=== PATIENT | female | born 1970 | race Caucasian/White ===

== ENCOUNTER 2017-10-16 16:33 | Emergency (ER) | payer OTHER ==
[~2017-10-16] VITALS: Ht 165.1 cm; Wt 110.9 kg
[~2017-10-16 16:33] MED LIST: ALPR.5 PO; AMIT50 PO; BENZ100A PO; BUPR150T2 PO; BUPR75 PO; CLON.5 PO; DIAZ5 PO; HYDHCL25 PO; NAPR500 PO; Norco 5-325 Ta1 EACH PO; OMEP20ER PO; PROM12.5S PR; PROM25 PO; Percocet 5-3251 EACH PO; Prednisone20 MG PO; SUMA25 PO; TOPI100 PO; TRAZ50 PO; [UNRECOGNIZED DRUG - OTHER] PO
[2017-10-16] MEDS ORDERED: TRAZ100 PO (17:10)
[2017-10-16 18:21] LABS: Source, Urine Clean Catch
[2017-10-16 18:26] LABS: BASOPHILS ABSOLUTE AUTO 0.07 K/mm3 (0.00-0.23); BASOPHILS PERCENT AUTO 1 % (0-2); EOSINOPHILS ABSOLUTE AUTO 0.19 K/mm3 (0.00-0.68); EOSINOPHILS PERCENT AUTO 2 % (0-6); Hematocrit 40.1 % (33.0-51.0); IMMATURE GRAN ABSOLUTE AUTO 0.02 K/mm3 (0.00-0.10); IMMATURE GRAN PERCENT AUTO 0 % (0-1); LYMPHOCYTES ABSOLUTE AUTO 3.13 K/mm3 (0.84-5.20); LYMPHOCYTES PERCENT AUTO 33 % (21-46); MONOCYTES ABSOLUTE AUTO 0.54 K/mm3 (0.16-1.47); MONOCYTES PERCENT AUTO 6 % (4-13); Mean Corpuscular HGB 28.3 pg (26.0-34.0); Mean Corpuscular HGB Conc 32.4 g/dL (31.5-36.5); Mean Corpuscular Volume 87 fL (80-100); Mean Platelet Volume 9.6 fL (9.1-12.4); NEUTROPHILS ABSOLUTE AUTO 5.45 K/mm3 (1.96-9.15); NEUTROPHILS PERCENT AUTO 58 % (41-73); Platelet Count 313 K/mm3 (150-400); RDW Coefficient Variation 12.9 % (11.7-14.2); RDW Standard Deviation 41.1 fL (35.1-46.3); Red Blood Cell Count 4.59 M/mm3 (3.80-5.20)
[2017-10-16 18:30] LABS: Appearance, Urine Clear (Clear); Bilirubin, Urine Neg (Neg); Blood, Urine 1+ (Neg); Color, Urine Yellow (P-Yellow); Glucose Qualitative, Urine Neg (Neg); Ketones, Urine Neg (Neg); Leukocyte Esterase, Urine Neg (Neg); Nitrite, Urine Neg (Neg); Protein, Urine Neg (Neg); Urobilinogen, Urine 2+ (Normal)
[2017-10-16 18:40] LABS: Bacteria Few /hpf; Red Blood Cells, Urine 0-2 /hpf (0-2); Squamous Epithelial Cells Mod /hpf (Few); White Blood Cells, Urine 0-2 /hpf (0-5); Yeast/Fungi Urine Few /hpf
[2017-10-16 18:50] LABS: Alanine Aminotransfer (ALT/SGP 20 U/L (12-78); Albumin, Blood 3.8 g/dL (3.4-5.0); Alk Phos 95 U/L (50-136); Anion Gap 7 mmol/L (6-16); Aspartate Aminotrans (AST/SGOT 13 U/L (12-37); Bilirubin, Total 0.1 mg/dL (0.1-1.0); Blood Urea Nitrogen 10 mg/dL (8-24); Bun/Creatinine Ratio 18.1 (12.0-20.0); CO2, Blood 26 mmol/L (21-32); Calcium, Blood 8.7 mg/dL (8.5-10.1); Chloride, Blood 107 mmol/L (98-108); Creatinine, Blood 0.55 mg/dL (0.40-1.00); Globulin, Blood 3.7 g/dL (2.2-4.0); Glomerular Filtration Rate >60 (60-); Glucose, Blood 108 mg/dL (70-99); Potassium, Blood 3.7 mmol/L (3.5-5.5); Sodium, Blood 140 mmol/L (136-145); Total Protein, Blood 7.5 g/dL (6.4-8.2)
[2017-10-16] MEDS ORDERED: Zofran Odt4 MG PO (19:23)
== END 2017-10-16 19:40 | disposition home or self-care (01) ==
LOC: ER 16:33
PROVIDERS: Emergency Medicine
DX: M53.3 Sacrococcygeal disorders, not elsewhere classified (principal); Z88.1 Allergy status to other antibiotic agents; Z88.8 Allergy status to other drugs, medicaments and biological substances; Z79.899 Other long term (current) drug therapy; G43.909 Migraine, unspecified, not intractable, without status migrainosus; F17.210 Nicotine dependence, cigarettes, uncomplicated
CPT/HCPCS: 36415; 80053; 81001; 81025; 85025; 96361; 96374; 96375; 99283; J1885; J2405; J7030

== ENCOUNTER → 2018-06-29 | Outpatient (CLI) | payer OTHER ==
[~2018-06-29] MED LIST changes: +TRAZ100 PO; +Zofran Odt4 MG PO
[2018-06-29 17:45] LABS: Adenovirus F 40/41 Not Detected (NOT DETECT); Astrovirus Not Detected (NOT DETECT); Campylobacter Sp Not Detected (NOT DETECT); Cryptosporidium Not Detected (NOT DETECT); Cyclospora Cayetanensis Not Detected (NOT DETECT); E. Coli O157 Not Detected (NOT DETECT); Entamoeba Histolytica Not Detected (NOT DETECT); Enteroaggregative E. coli-EAEC Not Detected (NOT DETECT); Enteropathogenic E. coli-EPEC Not Detected (NOT DETECT); Enterotoxigenic E. coli-ETEC Not Detected (NOT DETECT); Giardia Lamblia Not Detected (NOT DETECT); Norovirus GI/GII Not Detected (NOT DETECT); Plesiomonas Shigelloides Not Detected (NOT DETECT); Rotavirus A Not Detected (NOT DETECT); Salmonella Sp Not Detected (NOT DETECT); Sapovirus Not Detected (NOT DETECT); Shiga Toxin-prod E. coli-STEC Not Detected (NOT DETECT); Shigella/Enteroin E. coli-EIEC Not Detected (NOT DETECT); Vibrio Cholerae Not Detected (NOT DETECT); Vibrio Sp Not Detected (NOT DETECT); Yersinia Enterocolitica Not Detected (NOT DETECT)
== END | disposition home or self-care (01) ==
LOC: LAB 09:22 → LAB SHORT 09:22
PROVIDERS: Physician Assistant
DX: A09 Infectious gastroenteritis and colitis, unspecified (principal)
CPT/HCPCS: 87507

== ENCOUNTER → 2018-06-30 | Outpatient (CLI) | payer OTHER ==
[2018-06-30 16:12] LABS: BASOPHILS ABSOLUTE AUTO 0.05 K/mm3 (0.00-0.23); BASOPHILS PERCENT AUTO 1 % (0-2); EOSINOPHILS ABSOLUTE AUTO 0.13 K/mm3 (0.00-0.68); EOSINOPHILS PERCENT AUTO 3 % (0-6); Hematocrit 40.2 % (33.0-51.0); Hemoglobin 13.2 g/dL (11.5-16.0); IMMATURE GRAN ABSOLUTE AUTO 0.01 K/mm3 (0.00-0.10); IMMATURE GRAN PERCENT AUTO 0 % (0-1); LYMPHOCYTES PERCENT AUTO 23 % (21-46); MONOCYTES ABSOLUTE AUTO 0.45 K/mm3 (0.16-1.47); MONOCYTES PERCENT AUTO 9 % (4-13); Mean Corpuscular HGB 28.1 pg (26.0-34.0); Mean Corpuscular HGB Conc 32.8 g/dL (31.5-36.5); Mean Corpuscular Volume 86 fL (80-100); Mean Platelet Volume 10.7 fL (9.1-12.4); NEUTROPHILS ABSOLUTE AUTO 3.32 K/mm3 (1.96-9.15); NEUTROPHILS PERCENT AUTO 64 % (41-73); Platelet Count 251 K/mm3 (150-400); RDW Coefficient Variation 13.4 % (11.7-14.2); RDW Standard Deviation 41.6 fL (35.1-46.3); Red Blood Cell Count 4.69 M/mm3 (3.80-5.20); White Blood Cell Count 5.16 K/mm3 (4.00-11.30)
[2018-06-30 16:21] LABS: Alanine Aminotransfer (ALT/SGP 28 U/L (12-78); Albumin, Blood 3.8 g/dL (3.4-5.0); Albumin/Globulin Ratio 1.2 (0.8-1.8); Alk Phos 90 U/L (40-126); Anion Gap 9 mmol/L (6-16); Aspartate Aminotrans (AST/SGOT 23 U/L (12-37); Bilirubin, Total 0.2 mg/dL (0.1-1.0); Blood Urea Nitrogen 4 mg/dL (8-24); Bun/Creatinine Ratio 4.9 (12.0-20.0); CO2, Blood 27 mmol/L (21-32); Calcium, Blood 8.7 mg/dL (8.5-10.1); Chloride, Blood 104 mmol/L (98-108); Creatinine, Blood 0.82 mg/dL (0.40-1.00); Globulin, Blood 3.3 g/dL (2.2-4.0); Glomerular Filtration Rate >60 (60-); Glucose, Blood 101 mg/dL (70-99); Potassium, Blood 4.2 mmol/L (3.5-5.5); Sodium, Blood 140 mmol/L (136-145); Total Protein, Blood 7.1 g/dL (6.4-8.2)
== END | disposition home or self-care (01) ==
LOC: LAB SHORT 15:58 → LAB EV 15:58
PROVIDERS: Physician Assistant
DX: A09 Infectious gastroenteritis and colitis, unspecified (principal)
CPT/HCPCS: 80053; 83690; 85025

== ENCOUNTER 2018-09-11 09:02 | Day surgery (SDC) | payer OTHER ==
[~2018-09-11] VITALS: Ht 165.1 cm; Wt 100.1 kg
[~2018-09-11 09:02] MED LIST changes: +ALPR1 PO; +ESCI20 PO; +Imitrex100 MG PO; +MODA200 PO; -OMEP20ER PO; +OMEPRAZOLE MAGN20 MG PO; +TRAM50 PO
== END 2018-09-11 11:50 | disposition home or self-care (01) ==
LOC: ORSCSDS 09:02
PROVIDERS: Internal Medicine Gastroenterology
PROC: 0DBK8ZX Excision of Ascending Colon, Via Natural or Artificial Opening Endoscopic, Diagnostic (ICD-10-PCS; principal; 2018-09-11 10:45)
PROC: 0DBN8ZX Excision of Sigmoid Colon, Via Natural or Artificial Opening Endoscopic, Diagnostic (ICD-10-PCS; principal; 2018-09-11 10:45)
DX: K92.1 Melena (principal); D12.0 Benign neoplasm of cecum; D12.2 Benign neoplasm of ascending colon; K63.5 Polyp of colon; K57.30 Diverticulosis of large intestine without perforation or abscess without bleeding; F41.8 Other specified anxiety disorders; F17.210 Nicotine dependence, cigarettes, uncomplicated; Z79.899 Other long term (current) drug therapy
CPT/HCPCS: 88305; J7120

== ENCOUNTER 2020-05-07 15:41 | Emergency (ER) | payer OTHER ==
[~2020-05-07] VITALS: Ht 165.1 cm; Wt 99.8 kg
[2020-05-07] MEDS ORDERED: Norco 5-325 Ta1 EACH PO (16:48)
== END 2020-05-07 17:28 | disposition home or self-care (01) ==
LOC: ER 15:41
DX: S42.021A Displaced fracture of shaft of right clavicle, initial encounter for closed fracture (principal); F41.9 Anxiety disorder, unspecified; F17.210 Nicotine dependence, cigarettes, uncomplicated; Z79.899 Other long term (current) drug therapy; X50.0XXA Overexertion from strenuous movement or load, initial encounter; W18.30XA Fall on same level, unspecified, initial encounter; Y93.02 Activity, running
CPT/HCPCS: 73000; 73030; 99284-25

== ENCOUNTER 2021-11-22 11:00 | Emergency (ER) | payer MEDICARE, OTHER ==
[~2021-11-22] VITALS: Ht 165.1 cm; Wt 108.4 kg
[2021-11-22 11:32] LABS: BASOPHILS ABSOLUTE AUTO 0.07 K/mm3 (0.00-0.23); BASOPHILS PERCENT AUTO 1 % (0-2); EOSINOPHILS PERCENT AUTO 2 % (0-6); Hemoglobin 12.7 g/dL (11.5-16.0); IMMATURE GRAN ABSOLUTE AUTO 0.02 K/mm3 (0.00-0.10); IMMATURE GRAN PERCENT AUTO 0 % (0-1); LYMPHOCYTES ABSOLUTE AUTO 1.74 K/mm3 (0.84-5.20); LYMPHOCYTES PERCENT AUTO 28 % (21-46); MONOCYTES ABSOLUTE AUTO 0.38 K/mm3 (0.16-1.47); MONOCYTES PERCENT AUTO 6 % (4-13); Mean Corpuscular HGB 28.2 pg (26.0-34.0); Mean Corpuscular HGB Conc 31.8 g/dL (31.5-36.5); Mean Corpuscular Volume 89 fL (80-100); Mean Platelet Volume 9.1 fL (9.1-12.4); NEUTROPHILS ABSOLUTE AUTO 3.84 K/mm3 (1.96-9.15); NEUTROPHILS PERCENT AUTO 63 % (41-73); Platelet Count 299 K/mm3 (150-400); RDW Coefficient Variation 12.4 % (11.7-14.2); RDW Standard Deviation 40.7 fL (35.1-46.3); White Blood Cell Count 6.15 K/mm3 (4.00-11.30)
[2021-11-22 12:06] LABS: Alanine Aminotransfer (ALT/SGP 27 U/L (12-78); Albumin, Blood 3.8 g/dL (3.4-5.0); Alk Phos 113 U/L (50-136); Anion Gap 9 mmol/L (6-16); Aspartate Aminotrans (AST/SGOT 18 U/L (12-37); Bilirubin, Total 0.4 mg/dL (0.1-1.0); Blood Urea Nitrogen 14 mg/dL (8-24); Bun/Creatinine Ratio 19.9 (12.0-20.0); CO2, Blood 23 mmol/L (21-32); Calcium, Blood 9.1 mg/dL (8.5-10.1); Chloride, Blood 104 mmol/L (98-108); Glomerular Filtration Rate >60 (60-); Glucose, Blood 114 mg/dL (70-99); Sodium, Blood 136 mmol/L (136-145); Total Protein, Blood 7.8 g/dL (6.4-8.2)
[2021-11-22] MEDS ORDERED: LAMOTRIGINE25 M4 PO (12:40)
== END 2021-11-22 13:25 | disposition home or self-care (01) ==
LOC: ER 11:00
PROVIDERS: Emergency Medicine
DX: F41.9 Anxiety disorder, unspecified (principal); G43.909 Migraine, unspecified, not intractable, without status migrainosus; F17.290 Nicotine dependence, other tobacco product, uncomplicated
CPT/HCPCS: 71045; 80053; 84484; 85025; 93005; 93010; 99285-25; J3030

== ENCOUNTER 2021-12-22 07:47 | Day surgery (SDC) | payer MEDICARE, OTHER ==
[~2021-12-22] VITALS: Ht 165.1 cm; Wt 109.8 kg
[~2021-12-22 07:47] MED LIST changes: +ASPI81CH PO; +ATOR40TA PO; +BISOPROLOL-HCT1 EAC2 PO; +LAMOTRIGINE25 M4 PO
[2021-12-22] MEDS ORDERED: Bisoprolol Fumar5 MG PO (08:17)
[2021-12-22] MEDS ORDERED: SUBVENITE PO (08:18)
[2021-12-22] MEDS ORDERED: ESTROGEN PATCH TD (08:20)
[2021-12-22] MEDS ORDERED: OMEP20ER (08:21)
--- NOTE | 2021-12-22 10:15 | NUR ---
PT TO RECOVERY ROOM POST PROCEDURE. PT DROWSY, BUT CONVERSING APPROPRIATELY; DENIES CHEST PAIN POST PROCEDURE. MONITOR SR 70'S, B/P 121/95, AFEBRILE, SPO2 95% RA. R RADIAL SITE NO SWELLING/HEMATOMA, TR BAND IN PLACE; RUE POSITIVE PLEUTH POST TR BAND PLACEMENT.
--- NOTE | 2021-12-22 10:50 | NUR ---
PT RECEIEVED NICOTINE PATCH PER REQUEST.
--- NOTE | 2021-12-22 12:55 | NUR ---
PT AMB TO BATHROOM, GAIT STEADY; SITE UNCHANGED AFTER ACTIVITY.
--- NOTE | 2021-12-22 13:00 | NUR ---
PT DRESSED SELF WITHOUT PROBLEM, SITE UNCHANGED; IV REMOVED-CANNULA INTACT. TR BAND REMOVED CLOTH DOT AND WRIST IMMOBILIZER PLACED; PT DECLINED SLING.
--- NOTE | 2021-12-22 13:12 | NUR ---
PT AND SPOUSE RECEIVED DISCHAGE INSRUCTIONS, MED LIST AND AFTER CARE INSTRUCTIONS; VERBALIZED GOOD UNDERSTANDING. PT LEFT FACILITY VIA W/C, CONDITION STABLE.
== END 2021-12-22 13:12 | disposition home or self-care (01) ==
LOC: MHTC 07:47
PROC: B2111ZZ Fluoroscopy of Multiple Coronary Arteries using Low Osmolar Contrast (ICD-10-PCS; principal; 2021-12-22)
PROC: 4A023N7 Measurement of Cardiac Sampling and Pressure, Left Heart, Percutaneous Approach (ICD-10-PCS; principal; 2021-12-22)
DX: R07.89 Other chest pain (principal); I25.10 Atherosclerotic heart disease of native coronary artery without angina pectoris; E78.5 Hyperlipidemia, unspecified; J44.9 Chronic obstructive pulmonary disease, unspecified; E66.9 Obesity, unspecified; Z79.899 Other long term (current) drug therapy
CPT/HCPCS: 93454; 99152; A9270; C1769; C1887; C1894; J1644; J2250; J3010; J7030; J7040; Q9967

== ENCOUNTER 2023-03-30 06:12 | Day surgery (SDC) | payer MEDICARE, OTHER ==
[~2023-03-30] VITALS: Ht 165.1 cm; Wt 109.8 kg
[~2023-03-30 06:12] MED LIST changes: +Bisoprolol Fumar5 MG PO; +ESTROGEN PATCH TD; +OMEP20ER; +SUBVENITE PO
[2023-03-30] MEDS ORDERED: Venlafaxine HC100 MG PO (07:12)
[2023-03-30] MEDS ORDERED: Hydroxyzine HCl50 MG (07:12)
--- NOTE | 2023-03-30 08:42 | NUR ---
03/30/23 0842 STEFANI HICKS PT COMES OUT AWAKE AND TALKING. PLACED ON O2 VIA FACE MASK. PLACED ON 10L. O2 SAT @ 99% ON RA. DECREASED TO 5L FOR TRIAL. CURRENTLY 95% ON 5 L
--- NOTE | 2023-03-30 09:00 | NUR ---
03/30/23 0900 STEFANI HICKS IN @ O855 TO DO CXR TO CHECK PORT PLACEMENT.- PT PLACED BACK ON O2 @ 10L PT O2 SAT WAS DROPPING INTO UPPER 80'S ON RA. HOWEVER, PT HAS DARK NAIL [place] ON. POSITIONED ON SIDE, BY WILL TRY OTHER MEANS TO CHECK O2
[2023-03-30 09:11] VITALS: BP 104/71
== END 2023-03-30 10:30 | disposition home or self-care (01) ==
LOC: ORSCSDS 06:12
PROVIDERS: Surgery
PROC: 0JH63WZ Insertion of Totally Implantable Vascular Access Device into Chest Subcutaneous Tissue and Fascia, Percutaneous Approach (ICD-10-PCS; principal; 2023-03-30 07:30)
PROC: B543ZZA Ultrasonography of Right Jugular Veins, Guidance (ICD-10-PCS; principal; 2023-03-30 07:30)
PROC: 05HM33Z Insertion of Infusion Device into Right Internal Jugular Vein, Percutaneous Approach (ICD-10-PCS; principal; 2023-03-30 07:30)
DX: C50.412 Malignant neoplasm of upper-outer quadrant of left female breast (principal); E78.5 Hyperlipidemia, unspecified; I25.10 Atherosclerotic heart disease of native coronary artery without angina pectoris; J44.9 Chronic obstructive pulmonary disease, unspecified; F17.210 Nicotine dependence, cigarettes, uncomplicated; Z79.899 Other long term (current) drug therapy; F41.8 Other specified anxiety disorders; E66.01 Morbid (severe) obesity due to excess calories; Z68.41 Body mass index [BMI] 40.0-44.9, adult
CPT/HCPCS: 77001; C1788; J0690; J1100; J1642; J1885; J2250; J2405; J2704; J2795; J3010; J7120

== ENCOUNTER 2023-08-31 08:28 | Day surgery (SDC) | payer MEDICARE, OTHER ==
[~2023-08-31 08:28] MED LIST changes: +Hydroxyzine HCl50 MG; +Venlafaxine HC100 MG PO
== END 2023-08-31 23:01 | disposition home or self-care (01) ==
LOC: MOI US 08:28
DX: C50.812 Malignant neoplasm of overlapping sites of left female breast (principal)
CPT/HCPCS: 19285; A4648

== ENCOUNTER 2023-09-05 07:15 | Day surgery (SDC) | payer MEDICARE, OTHER ==
[~2023-09-05] VITALS: Ht 165.1 cm; Wt 105.6 kg
[2023-09-05] VITALS (17 sets, daily range): BP systolic 102–139; BP diastolic 67–87
[~2023-09-05 07:15] MED LIST changes: +Flonase 0.05% N16 GM; -Hydroxyzine HCl50 MG; +Hydroxyzine HCl50 MG PO; +MULVITA PO; +OMEP20ER PO; -OMEPRAZOLE MAGN20 MG PO; +ONDA4 PO
[2023-09-05] MEDS ORDERED: Bisoprolol Fumar5 MG PO (09:23)
[2023-09-05] MEDS ORDERED: ATOR40TA PO (09:23)
[2023-09-05] MEDS ORDERED: GABA100 PO (09:24)
[2023-09-05] MEDS ORDERED: REGLAN1013 PO (09:25)
[2023-09-05] MEDS ORDERED: BENZONATATE100 MG PO (09:25)
[2023-09-05] MEDS ORDERED: XANAX PO (09:28)
--- NOTE | 2023-09-05 10:05 | NUR ---
History, Chart, Medications and Allergies reviewed before start of procedure. Ambulatory in Day Surgery. Pre-Op teaching done. Pt verbalizes understanding. Patient confirms NPO status and agrees with scheduled surgery. Patient reports completing Chlorhexadine shower X2 prior to admission to hospital. Surgical site prepped with 2% Chlorhexidine cloth wipe. Lungs clear T/O to Auscultation. Patient States Post-Procedure ride home has been arranged.
--- NOTE | 2023-09-05 11:22 | NUR ---
09/05/23 1122 [address]ney [address]ata CALL FROM DR. VELASCO AT 1120. SPECIMEN B) LEFT SENTINEL LYMPH NODE (PREVIOUSLY POSITIVE) IS POSITIVE FOR CARCINOMA. PER DR. MILLER NO RESULT NEEDED ON SPECIMEN C) SENTINEL LYMPH NODE #2.
--- NOTE | 2023-09-05 17:09 | NUR ---
SHIFT SUMMARY PATIENT IS S/P BILAT BREAST MASTECOMY W/ MEDIPORT REMOVAL. STERI STRIPS WITH GAUZE AND BREAST BINDER DRESSING AOX3-4 HAS SOME. POST-OP GROGGINESS. MEDICATED FOR PAIN TOLERATES WELL. TOLERATES PO INTAKE, UP TO BATHROOM SBA TO VOID. X3 HELDER DRAINS WITH S/S. DRNG. PATIENT IS RESTING COMFORTABLE, VSS. CALL LIGHT IN REACH.
[2023-09-06 05:51] VITALS: BP 116/84
[2023-09-06 07:16] VITALS: BP 116/80
[2023-09-06] MEDS ORDERED: HYDROCODONE-AC1 EA10 PO (10:41)
--- NOTE | 2023-09-06 11:03 | NUR ---
DISCHARGE NOTE PT DISCHARGED TO HOME, DISCHARGE INFORMATION AND EDUCATION PROVIDED TO THE PT. MEDICATIONS FAXED TO THE PHARMACY OF HER CHOICE. HARD SCRIPT PROVIDED. IV REMOVED. PERSONAL BELONGINGS RETURNED.
== END 2023-09-06 11:08 | disposition home or self-care (01) ==
LOC: ORSCMMR 07:15 → ORD 09:30 → ORSCMMR 09:30 → SURS 14:30 → ORSCMMR 09-06 11:08
PROVIDERS: Surgery
PROC: 07B60ZX Excision of Left Axillary Lymphatic, Open Approach, Diagnostic (ICD-10-PCS; principal; 2023-09-05 09:30)
PROC: 0HBV0ZX Excision of Bilateral Breast, Open Approach, Diagnostic (ICD-10-PCS; principal; 2023-09-05 09:30)
PROC: 0JPT3WZ Removal of Totally Implantable Vascular Access Device from Trunk Subcutaneous Tissue and Fascia, Percutaneous Approach (ICD-10-PCS; principal; 2023-09-05 09:30)
DX: C50.812 Malignant neoplasm of overlapping sites of left female breast (principal); C77.3 Secondary and unspecified malignant neoplasm of axilla and upper limb lymph nodes; Z17.0 Estrogen receptor positive status [ER+]; Z40.01 Encounter for prophylactic removal of breast; D24.1 Benign neoplasm of right breast; I25.10 Atherosclerotic heart disease of native coronary artery without angina pectoris; J44.9 Chronic obstructive pulmonary disease, unspecified; K21.9 Gastro-esophageal reflux disease without esophagitis; E78.5 Hyperlipidemia, unspecified; E88.810 Metabolic syndrome; F17.290 Nicotine dependence, other tobacco product, uncomplicated; F33.9 Major depressive disorder, recurrent, unspecified; Z79.899 Other long term (current) drug therapy; E66.9 Obesity, unspecified; Z68.38 Body mass index [BMI] 38.0-38.9, adult; Z45.2 Encounter for adjustment and management of vascular access device
CPT/HCPCS: 88307; 88331; A9270; J0690; J2250; J3010; J7120; Q9968

== ENCOUNTER 2024-02-11 11:17 | Emergency (ER) | payer MEDICARE, OTHER ==
[~2024-02-11] VITALS: Ht 165.1 cm; Wt 107.0 kg
[~2024-02-11 11:17] MED LIST changes: +BENZONATATE100 MG PO; +CYCL10 PO; +GABA100 PO; +HYDROCODONE-AC1 EA10 PO; +IBUP800 PO; +OXAYDO5 M2 PO; +REGLAN1013 PO; +XANAX PO; +Zofran4 MG PO
[2024-02-11] MEDS ORDERED: Ketorolac Tromethamine 30mg Vial IV ONE (12:10)
[2024-02-11] MEDS ORDERED: FentaNYL Citrate 50 MCG/ML 2 ML Injection IV ONE ×2 (12:10→13:05)
[2024-02-11 12:11] LABS: Hematocrit 34.4 % (33.0-51.0); Hemoglobin 11.7 g/dL (11.5-16.0); Mean Corpuscular HGB 29.9 pg (26.0-34.0); Mean Corpuscular Volume 88 fL (80-100); Mean Platelet Volume 8.7 fL (9.1-12.4); Platelet Count 200 K/mm3 (150-400); RDW Coefficient Variation 14.5 % (11.7-14.2); RDW Standard Deviation 46.1 fL (35.1-46.3); Red Blood Cell Count 3.91 M/mm3 (3.80-5.20); White Blood Cell Count 3.71 K/mm3 (4.00-11.30)
[2024-02-11 12:27] LABS: Albumin, Blood 3.6 g/dL (3.4-5.0); Bilirubin, Total 0.4 mg/dL (0.1-1.0); Bun/Creatinine Ratio 18.1 (12.0-20.0); Calcium, Blood 9.3 mg/dL (8.5-10.1); Creatinine, Blood 0.66 mg/dL (0.40-1.00); Globulin, Blood 3.5 g/dL (2.2-4.0); Potassium, Blood 3.9 mmol/L (3.5-5.5); Total Protein, Blood 7.1 g/dL (6.4-8.2)
[2024-02-11 12:34] LABS: Source, Urine Clean Catch
[2024-02-11 12:38] LABS: Appearance, Urine Hazy (Clear); Bilirubin, Urine Neg (Neg); Blood, Urine Neg (Neg); Color, Urine Yellow (P-Yellow); Glucose Qualitative, Urine Neg (Neg); Ketones, Urine Neg (Neg); Leukocyte Esterase, Urine 1+ (Neg); Nitrite, Urine Neg (Neg); Protein, Urine 1+ (Neg); Specific Gravity, Urine 1.025 (1.003-1.022); Urobilinogen, Urine NORM (Normal)
[2024-02-11 12:47] LABS: BASOPHILS ABSOLUTE MAN 0.03 K/mm3 (0.00-0.23); BASOPHILS PERCENT MAN 1 % (0-2); EOSINOPHILS ABSOLUTE MAN 0.07 K/mm3 (0.00-0.68); EOSINOPHILS PERCENT MAN 2 % (0-6); LYMPHOCYTES % ATYPICAL MANUAL 3 % (0-0); LYMPHOCYTES ABSOLUTE MAN 1.55 K/mm3 (0.84-5.20); LYMPHOCYTES PERCENT MAN 39 % (21-46); MONOCYTES ABSOLUTE MAN 0.18 K/mm3 (0.16-1.47); MONOCYTES PERCENT MAN 5 % (4-13); NEUTROPHILS ABSOLUTE MAN 1.85 K/mm3 (1.96-9.15); SEG NEUTROPHILS PERCENT MAN 50 % (41-73); TOTAL CELLS COUNTED 100
[2024-02-11 12:57] LABS: Amorphous Light (0-Heavy); Bacteria Few /hpf; Calcium Oxalate Crystals Rare /hpf; Mucus Light (0-Heavy); Red Blood Cells, Urine Not Seen /hpf (0-2); Squamous Epithelial Cells Many /hpf (Few)
[2024-02-11] MEDS ORDERED: ANASTROZOLE1 M7 PO (14:25)
[2024-02-11] MEDS ORDERED: MORP15ER PO (15:12)
[2024-02-11 15:20] VITALS: BP 120/80
== END 2024-02-11 15:23 | disposition home or self-care (01) ==
LOC: ER 11:17
PROVIDERS: Physician Assistant; Student in an Organized Health Care Education/Training Program
DX: R10.32 Left lower quadrant pain (principal); Z98.890 Other specified postprocedural states; G47.33 Obstructive sleep apnea (adult) (pediatric); F17.200 Nicotine dependence, unspecified, uncomplicated; Z79.1 Long term (current) use of non-steroidal anti-inflammatories (NSAID); Z79.51 Long term (current) use of inhaled steroids; Z79.899 Other long term (current) drug therapy; Z88.1 Allergy status to other antibiotic agents
CPT/HCPCS: 74177; 80053; 81001; 85025; 87077; 87086; 87186; 96374-59; 96375; 96376; 99284-25; J1885; J3010; Q9967

== ENCOUNTER → 2024-06-19 | Outpatient (CLI) | payer MEDICARE, OTHER ==
[~2024-06-19] MED LIST changes: +ANASTROZOLE1 M7 PO; +MORP15ER PO
[2024-06-19 17:02] LABS: U Amphetamine Screen Not Detected; U Barbituate Screen Not Detected; U Benzodiazapine Screen Not Detected; U Buprenorphine Screen Not Detected; U Cannabinoids Screen DETECTED; U Cocaine Screen Not Detected; U Methadone Screen Not Detected; U Methamphetamine Screen Not Detected; U Opiates Screen Not Detected; U Oxycodone Screen Not Detected; U Phencyclidine Screen Not Detected
== END ==
LOC: LAB 15:16 → LAB SHORT 15:16
PROVIDERS: Internal Medicine Critical Care Medicine
DX: G47.10 Hypersomnia, unspecified (principal); R40.0 Somnolence

== ENCOUNTER 2025-01-01 19:12 | Emergency (ER) | payer MEDICARE, OTHER ==
[~2025-01-01] VITALS: Ht 165.1 cm; Wt 110.2 kg
[2025-01-01] MEDS ORDERED: Ketorolac Tromethamine 15mg Vial IV ONE (19:35)
[2025-01-01] MEDS ORDERED: Metoclopramide HCl 5MG / ML 2ML Vial IV ONE (19:35)
[2025-01-01] MEDS ORDERED: NS 1,000 ML IV SCH (19:35)
[2025-01-01 21:10] LABS: BASOPHILS ABSOLUTE AUTO 0.04 K/mm3 (0.00-0.23); BASOPHILS PERCENT AUTO 0 % (0-2); EOSINOPHILS ABSOLUTE AUTO 0.09 K/mm3 (0.00-0.68); EOSINOPHILS PERCENT AUTO 1 % (0-6); Hematocrit 35.9 % (33.0-51.0); Hemoglobin 12.1 g/dL (11.5-16.0); IMMATURE GRAN ABSOLUTE AUTO 0.02 K/mm3 (0.00-0.10); IMMATURE GRAN PERCENT AUTO 0 % (0-1); LYMPHOCYTES ABSOLUTE AUTO 1.43 K/mm3 (0.84-5.20); LYMPHOCYTES PERCENT AUTO 16 % (21-46); MONOCYTES ABSOLUTE AUTO 0.84 K/mm3 (0.16-1.47); MONOCYTES PERCENT AUTO 9 % (4-13); Mean Corpuscular HGB 29.4 pg (26.0-34.0); Mean Corpuscular HGB Conc 33.7 g/dL (31.5-36.5); Mean Corpuscular Volume 87 fL (80-100); Mean Platelet Volume 8.9 fL (9.1-12.4); NEUTROPHILS ABSOLUTE AUTO 6.79 K/mm3 (1.96-9.15); NEUTROPHILS PERCENT AUTO 74 % (41-73); Platelet Count 249 K/mm3 (150-400); RDW Coefficient Variation 12.9 % (11.7-14.2); Red Blood Cell Count 4.12 M/mm3 (3.80-5.20); White Blood Cell Count 9.21 K/mm3 (4.00-11.30)
[2025-01-01 21:32] LABS: Albumin, Blood 3.9 g/dL (3.4-5.0); Albumin/Globulin Ratio 0.9 (0.8-1.8); Bilirubin, Total 0.5 mg/dL (0.1-1.0); Bun/Creatinine Ratio 11.3 (12.0-20.0); Calcium, Blood 9.2 mg/dL (8.5-10.1); Creatinine, Blood 0.71 mg/dL (0.40-1.00); Globulin, Blood 4.2 g/dL (2.2-4.0); Potassium, Blood 3.7 mmol/L (3.5-5.5); Total Protein, Blood 8.1 g/dL (6.4-8.2)
[2025-01-01 21:37] VITALS: BP 135/85
[2025-01-01] MEDS ORDERED: METO10 PO (22:01)
[2025-01-02] MEDS ORDERED: Oxymetazoline 0.05% Nasal Relief Spray 15mL BTL SCH (09:00)
== END 2025-01-01 22:55 | disposition home or self-care (01) ==
LOC: ER 19:12
PROVIDERS: Emergency Medicine
DX: J06.9 Acute upper respiratory infection, unspecified (principal); R19.7 Diarrhea, unspecified; R11.2 Nausea with vomiting, unspecified; J44.9 Chronic obstructive pulmonary disease, unspecified; G43.909 Migraine, unspecified, not intractable, without status migrainosus; Z87.891 Personal history of nicotine dependence; Z79.51 Long term (current) use of inhaled steroids; Z79.899 Other long term (current) drug therapy; Z88.1 Allergy status to other antibiotic agents
CPT/HCPCS: 71045; 80053; 83690; 85025; 93005; 93010; 96361; 96374; 96375; 99284-25; A9270; J1885; J2765; J7030